=== PATIENT | female | born 1945 | race Caucasian/White ===

== ENCOUNTER 2020-07-26 14:44 | Observation (INO) ==
[2020-07-26 16:33] LABS: Hemoglobin 12.5 g/dL (11.5-15.4); Mean Corpuscular Volume 92.9 fL (83.0-100.0)
[2020-07-26 16:34] LABS: Basophils % 0.4 %; Eosinophils # 0.1 K/mcL (0.0-0.6); Eosinophils % 2.1 %; Hematocrit 37.8 % (35.3-44.9); Immature Granulocytes % 1.8 % (0-4); Immature Platelets 6.8 % (1.1-6.1); Lymphocytes # 0.5 K/mcL (0.6-4.6); Lymphocytes % 18.3 %; Mean Corpuscular HGB Conc 33.1 g/dL (31.6-35.5); Mean Corpuscular Hemoglobin 30.7 pg (28.0-33.3); Mean Platelet Volume 12.1 fL (9.4-12.4); Monocytes # 0.2 K/mcL (0.0-1.3); Monocytes % 6.7 %; Red Blood Count 4.07 M/mcL (3.82-4.97); Red Cell Distribution Width 12.5 % (11.5-14.5); Segmented Neutrophils % 70.7 %; White Blood Count 2.8 K/mcL (4.3-11.1)
[2020-07-26 16:40] LABS: INR 1.1; Prothrombin Time 12.5 Seconds (9.4-12.1)
[2020-07-26 16:42] LABS: Activated Partial Thrombo Time 26.2 Seconds (26.0-36.0)
[2020-07-26 16:45] LABS: Alanine Aminotransferase 27 Units/L (7-52); Albumin/Globulin Ratio 1.8 (1.1-2.2); Alkaline Phosphatase 78 Units/L (34-104); Aspartate Amino Transferase 24 Units/L (13-39); BUN/Creatinine Ratio 18 (6-26); Bilirubin,Direct 0.1 mg/dL (0.0-0.2); Bilirubin,Indirect 0.2 mg/dL (0.0-1.0); Bilirubin,Total 0.3 mg/dL (0.3-1.0); Blood Urea Nitrogen 16 mg/dL (8-23); Calcium 8.5 mg/dL (8.6-10.3); Carbon Dioxide 25 mEq/L (23-29); Chloride 106 mEq/L (98-107); Globulin 2.2 g/dL (2.4-3.5); Glucose 166 mg/dL (70-105); Osmolality,Calculated 293 (280-300); Potassium 3.9 mEq/L (3.5-5.1); Sodium 139 mEq/L (136-145); Total Protein 6.2 g/dL (6.4-8.9); Troponin I < 0.03 ng/mL (< 0.04); eGFR For African Americans > 60 (> 60); eGFR For Non-African Americans 60 (> 60)
[2020-07-26 16:48] LABS: Platelet Count 78 K/mcL (140-400)
[2020-07-26 17:55] LABS: Bacteria,Urine Few per hpf (None-Few); Bilirubin,Urine Negative (Negative); Blood,Urine Negative (Negative); Clarity,Urine Clear (Clear); Color,Urine Light-Yellow (Yellow); Glucose,Urine (UA) Normal (Normal); Ketones,Urine Negative (Negative); Leukocyte Esterase,Urine Small (Negative); Mucus,Urine Few per lpf (None-Few); Nitrite,Urine Negative (Negative); Protein,Urine Negative (Neg-Trace); RBC,Urine 0-3 per hpf (0-3); Specific Gravity,Urine 1.018 (1.010-1.025); Squamous Epithelial Cell,Urine Few per hpf (None-Few); Urobilinogen,Urine Normal (Normal); WBC,Urine 0-3 per hpf (0-3)
[2020-07-26 17:56] LABS: Adenovirus Not Detected (Not Detect); Bordetella Pertussis Not Detected (Not Detect); Chlamydophila pneumoniae Not Detected (Not Detect); Coronavirus 229E Not Detected (Not Detect); Coronavirus HKU1 Not Detected (Not Detect); Coronavirus NL63 Not Detected (Not Detect); Coronavirus OC43 Not Detected (Not Detect); Human Metapneumovirus Not Detected (Not Detect); Human Rhinovirus/Enterovirus DETECTED (Not Detect); Influenza A Subtype 2009 H1 Not Detected (Not Detect); Influenza B Not Detected (Not Detect); Mycoplasma pneumoniae Not Detected (Not Detect); Parainfluenza Virus 1 Not Detected (Not Detect); Parainfluenza Virus 2 Not Detected (Not Detect); Parainfluenza Virus 3 Not Detected (Not Detect); Parainfluenza Virus 4 Not Detected (Not Detect); Respiratory Syncytial Virus Not Detected (Not Detect); SARS-CoV-2 DETECTED (Not Detect)
[2020-07-26] MEDS ORDERED: Naloxone 0.4 MG/ML INJ IVP PRN (19:47)
[2020-07-26] MEDS ORDERED: Ondansetron ODT 4 MG TAB.RAPDIS SL PRN (19:47)
[2020-07-26] MEDS ORDERED: Acetaminophen 325 MG TABLET PO PRN (19:47)
[2020-07-26] MEDS ORDERED: Dextrose Gel 15 GM/37.5 ML TUBE PO PRN ×2 (19:58)
[2020-07-26] MEDS ORDERED: diazePAM 5 MG TABLET PO PRN (19:58)
[2020-07-26] MEDS ORDERED: *HR* OxyCODONE Immed Rel 5 MG TABLET PO PRN (19:58)
[2020-07-26] MEDS ORDERED: D5% in Water 1,000 ML IVC PRN (19:58)
[2020-07-26] MEDS ORDERED: *HR* Dextrose 50 % in Water (Vial) 50 ML VIAL IVP PRN (19:58)
[2020-07-26] MEDS ORDERED: Insulin LISPRO 300 UNITS/3 ML VIAL SUBQ SCH ×2 (20:00→21:00)
[2020-07-26] MEDS: Gabapentin 300 MG CAPSULE PO SCH (21:55)
[2020-07-27 02:28] LABS: Basophils % 0.7 %
[2020-07-27 02:30] LABS: Eosinophils # 0.1 K/mcL (0.0-0.6); Eosinophils % 1.6 %; Hematocrit 36.4 % (35.3-44.9); Hemoglobin 11.8 g/dL (11.5-15.4); Immature Granulocytes % 2.6 % (0-4); Immature Platelets 6.3 % (1.1-6.1); Lymphocytes # 0.7 K/mcL (0.6-4.6); Mean Corpuscular HGB Conc 32.4 g/dL (31.6-35.5); Mean Corpuscular Hemoglobin 30.3 pg (28.0-33.3); Mean Corpuscular Volume 93.6 fL (83.0-100.0); Mean Platelet Volume 11.4 fL (9.4-12.4); Monocytes # 0.3 K/mcL (0.0-1.3); Monocytes % 10.2 %; Neutrophils # 1.9 K/mcL (1.6-8.9); Platelet Count 75 K/mcL (140-400); Red Blood Count 3.89 M/mcL (3.82-4.97); Red Cell Distribution Width 12.5 % (11.5-14.5); Segmented Neutrophils % 61.9 %; White Blood Count 3.1 K/mcL (4.3-11.1)
[2020-07-27 02:46] LABS: BUN/Creatinine Ratio 20 (6-26); Blood Urea Nitrogen 19 mg/dL (8-23); C-Reactive Protein < 5 mg/L (Less than 10); Calcium 8.5 mg/dL (8.6-10.3); Carbon Dioxide 27 mEq/L (23-29); Chloride 106 mEq/L (98-107); Glucose 92 mg/dL (70-105); Lactate Dehydrogenase 117 Units/L (140-271); Magnesium 1.5 mg/dL (1.6-2.6); Osmolality,Calculated 290 (280-300); Phosphorous 3.3 mg/dL (2.7-4.5); Sodium 139 mEq/L (136-145); eGFR For African Americans > 60 (> 60); eGFR For Non-African Americans 58 (> 60)
[2020-07-27] MEDS: Gabapentin 300 MG CAPSULE PO SCH (08:41)
[2020-07-27 09:49] VITALS: BP 115/60
== END 2020-07-27 13:21 | disposition home or self-care (01) ==
LOC: EMEROOARM 14:44 → 2NENU 14:44 → SUATTDRO 19:48 → 2NENU 21:26
PROVIDERS: ADMIT Internal Medicine; ATTEND Student in an Organized Health Care Education/Training Program

== ENCOUNTER 2021-06-18 12:54 | Inpatient (IN) ==
[2021-06-18] MEDS ORDERED: *HR* HYDROmorphone (PF) 1 MG/ML SYRINGE IVP ONE (14:24)
[2021-06-18 14:50] LABS: Basophils % 0.4 %; Eosinophils % 1.1 %; Platelet Count 104 K/mcL (140-400); Red Cell Distribution Width 12.6 % (11.5-14.5)
[2021-06-18 14:52] LABS: Eosinophils # 0.1 K/mcL (0.0-0.6); Hematocrit 40.4 % (35.3-44.9); Hemoglobin 12.8 g/dL (11.5-15.4); Immature Granulocytes % 1.3 % (0-4); Immature Platelets 5.1 % (1.1-6.1); Lymphocytes # 1.4 K/mcL (0.6-4.6); Lymphocytes % 17.4 %; Mean Corpuscular HGB Conc 31.7 g/dL (31.6-35.5); Mean Corpuscular Hemoglobin 31.4 pg (28.0-33.3); Mean Corpuscular Volume 99.3 fL (83.0-100.0); Mean Platelet Volume 11.7 fL (9.4-12.4); Monocytes # 0.5 K/mcL (0.0-1.3); Monocytes % 5.7 %; Red Blood Count 4.07 M/mcL (3.82-4.97); Segmented Neutrophils % 74.1 %; White Blood Count 7.9 K/mcL (4.3-11.1)
[2021-06-18 14:53] LABS: Neutrophils # 5.9 K/mcL (1.6-8.9)
[2021-06-18 15:11] LABS: Calcium 8.9 mg/dL (8.6-10.3); Potassium 3.8 mEq/L (3.5-5.1)
[2021-06-18] MEDS ORDERED: Ondansetron 4 MG/2 ML VIAL IVP PRN (15:13)
[2021-06-18] MEDS ORDERED: Melatonin 3 MG TABLET PO PRN (15:13)
[2021-06-18] MEDS ORDERED: Naloxone 0.4 MG/ML INJ IVP PRN (15:13)
[2021-06-18] MEDS ORDERED: diazePAM 5 MG TABLET PO PRN (15:14)
[2021-06-18] MEDS ORDERED: (Diclofenac Sodium [Voltaren] 100 GM Gel..Gram.) TP PRN (15:14)
[2021-06-18] MEDS ORDERED: *HR* OxyCODONE Immed Rel 5 MG TABLET PO PRN (15:39)
[2021-06-18] MEDS ORDERED: Dextrose Gel 15 GM/37.5 ML TUBE PO PRN ×2 (15:42)
[2021-06-18] MEDS ORDERED: *HR* Dextrose 50 % in Water (Syg) 50 ML SYRINGE IVP PRN (15:42)
[2021-06-18] MEDS ORDERED: D5% in Water 1,000 ML IVC PRN (15:42)
[2021-06-18] MEDS ORDERED: 0.9 % Sodium Chloride 1,000 ML IVC SCH (15:45)
[2021-06-18] MEDS: Insulin LISPRO 300 UNITS/3 ML VIAL SUBQ SCH (18:02)
[2021-06-18] MEDS: Topiramate 25 MG TABLET PO SCH (20:22)
[2021-06-18] MEDS: Gabapentin 400 MG CAPSULE PO SCH (20:27)
[2021-06-18] MEDS: *HR* OxyCODONE Immed Rel 5 MG TABLET PO PRN (23:16)
[2021-06-19] MEDS: Acetaminophen 325 MG TABLET PO PRN (04:44)
[2021-06-19 05:09] LABS: Basophils % 0.5 %; Mean Platelet Volume 11.6 fL (9.4-12.4)
[2021-06-19 05:10] LABS: Bilirubin,Urine Negative (Negative); Blood,Urine Negative (Negative); Clarity,Urine Clear (Clear); Color,Urine Colorless (Yellow); Glucose,Urine (UA) Normal (Normal); Ketones,Urine Negative (Negative); Leukocyte Esterase,Urine Negative (Negative); Nitrite,Urine Negative (Negative); PH,Urine 6.5 pH Units (5.0-8.0); Protein,Urine Negative (Neg-Trace); Specific Gravity,Urine 1.008 (1.010-1.025); Urobilinogen,Urine Normal (Normal)
[2021-06-19 05:11] LABS: Eosinophils # 0.1 K/mcL (0.0-0.6); Eosinophils % 2.2 %; Hemoglobin 12.2 g/dL (11.5-15.4); Immature Granulocytes % 1.9 % (0-4); Immature Platelets 4.6 % (1.1-6.1); Lymphocytes # 1.4 K/mcL (0.6-4.6); Lymphocytes % 21.9 %; Mean Corpuscular HGB Conc 32.1 g/dL (31.6-35.5); Mean Corpuscular Hemoglobin 31.7 pg (28.0-33.3); Mean Corpuscular Volume 98.7 fL (83.0-100.0); Monocytes # 0.6 K/mcL (0.0-1.3); Monocytes % 8.6 %; Red Blood Count 3.85 M/mcL (3.82-4.97); Red Cell Distribution Width 12.7 % (11.5-14.5); Segmented Neutrophils % 64.9 %; White Blood Count 6.4 K/mcL (4.3-11.1)
[2021-06-19 05:12] LABS: Neutrophils # 4.2 K/mcL (1.6-8.9); Platelet Count 98 K/mcL (140-400)
[2021-06-19 05:32] LABS: Calcium 8.9 mg/dL (8.6-10.3); Magnesium 1.5 mg/dL (1.6-2.6)
[2021-06-19] MEDS: *HR* OxyCODONE Immed Rel 5 MG TABLET PO PRN ×2 (05:42→19:25)
[2021-06-19] MEDS: Insulin LISPRO 300 UNITS/3 ML VIAL SUBQ SCH ×3 (08:51→16:29)
[2021-06-19] MEDS: Loratadine 10 MG TABLET PO SCH (09:06)
[2021-06-19] MEDS: lisinopriL 10 MG TABLET PO SCH (09:06)
[2021-06-19] MEDS: Gabapentin 300 MG CAPSULE PO SCH ×2 (09:06→14:41)
[2021-06-19] MEDS: Cyanocobalamin (B-12) 1,000 MCG TABLET PO SCH (09:06)
[2021-06-19] MEDS ORDERED: Ringers Solution, Lactated 1,000 ML IVC SCH (11:45)
[2021-06-19] MEDS: Gabapentin 400 MG CAPSULE PO SCH (19:25)
[2021-06-19] MEDS: Topiramate 25 MG TABLET PO SCH (19:25)
[2021-06-20 04:45] LABS: Basophils % 0.5 %; Eosinophils # 0.1 K/mcL (0.0-0.6); Eosinophils % 2.5 %; Hematocrit 34.9 % (35.3-44.9); Immature Granulocytes % 1.8 % (0-4); Lymphocytes # 1.3 K/mcL (0.6-4.6); Lymphocytes % 22.6 %; Mean Corpuscular HGB Conc 31.5 g/dL (31.6-35.5); Mean Corpuscular Hemoglobin 32.2 pg (28.0-33.3); Mean Platelet Volume 11.5 fL (9.4-12.4); Monocytes # 0.5 K/mcL (0.0-1.3); Red Blood Count 3.42 M/mcL (3.82-4.97); Red Cell Distribution Width 12.6 % (11.5-14.5); Segmented Neutrophils % 63.6 %; White Blood Count 5.6 K/mcL (4.3-11.1)
[2021-06-20 04:47] LABS: Neutrophils # 3.6 K/mcL (1.6-8.9); Platelet Count 92 K/mcL (140-400)
[2021-06-20 05:03] LABS: Calcium 8.9 mg/dL (8.6-10.3); Potassium 4.3 mEq/L (3.5-5.1)
[2021-06-20] MEDS: Insulin LISPRO 300 UNITS/3 ML VIAL SUBQ SCH ×3 (08:33→17:14)
[2021-06-20] MEDS: Gabapentin 300 MG CAPSULE PO SCH ×2 (08:35→14:29)
[2021-06-20] MEDS: lisinopriL 10 MG TABLET PO SCH (08:35)
[2021-06-20] MEDS: *HR* OxyCODONE Immed Rel 5 MG TABLET PO PRN (08:35)
[2021-06-20] MEDS: Loratadine 10 MG TABLET PO SCH (08:35)
[2021-06-20] MEDS: Cyanocobalamin (B-12) 1,000 MCG TABLET PO SCH (08:35)
[2021-06-20] MEDS ORDERED: Milk and Molasses Enema 200 ML RC ONE (14:53)
[2021-06-20] MEDS: Gabapentin 400 MG CAPSULE PO SCH (20:04)
[2021-06-20] MEDS: Topiramate 25 MG TABLET PO SCH (20:04)
[2021-06-20] MEDS: Acetaminophen 325 MG TABLET PO PRN (20:04)
[2021-06-21 05:01] LABS: Mean Corpuscular Volume 97.5 fL (83.0-100.0); Monocytes % 7.8 %; Red Cell Distribution Width 12.4 % (11.5-14.5); Segmented Neutrophils % 64.8 %
[2021-06-21 05:04] LABS: Basophils % 0.3 %; Eosinophils # 0.2 K/mcL (0.0-0.6); Eosinophils % 3.2 %; Hematocrit 35.7 % (35.3-44.9); Hemoglobin 11.2 g/dL (11.5-15.4); Immature Granulocytes % 1.4 % (0-4); Immature Platelets 3.7 % (1.1-6.1); Lymphocytes # 1.4 K/mcL (0.6-4.6); Lymphocytes % 22.5 %; Mean Corpuscular HGB Conc 31.4 g/dL (31.6-35.5); Mean Corpuscular Hemoglobin 30.6 pg (28.0-33.3); Mean Platelet Volume 11.6 fL (9.4-12.4); Monocytes # 0.5 K/mcL (0.0-1.3); Neutrophils # 4.1 K/mcL (1.6-8.9); Red Blood Count 3.66 M/mcL (3.82-4.97); White Blood Count 6.3 K/mcL (4.3-11.1)
[2021-06-21 05:05] LABS: Platelet Count 97 K/mcL (140-400)
[2021-06-21 05:23] LABS: Calcium 9.2 mg/dL (8.6-10.3); Potassium 4.6 mEq/L (3.5-5.1)
[2021-06-21] MEDS: Insulin LISPRO 300 UNITS/3 ML VIAL SUBQ SCH ×3 (08:26→18:44)
[2021-06-21] MEDS ORDERED: Ergocalciferol (VIT D2) 50,000 UNIT (1.25MG) CAP PO SCH (09:00)
[2021-06-21] MEDS: Loratadine 10 MG TABLET PO SCH (09:48)
[2021-06-21] MEDS: Cyanocobalamin (B-12) 1,000 MCG TABLET PO SCH (09:48)
[2021-06-21] MEDS: Gabapentin 300 MG CAPSULE PO SCH ×2 (09:48→18:43)
[2021-06-21] MEDS: lisinopriL 10 MG TABLET PO SCH (10:13)
[2021-06-21] MEDS ORDERED: *HR* Propofol 200 MG/20 ML VIAL IVP ONE (11:10)
[2021-06-21] MEDS ORDERED: Famotidine 20 MG TABLET PO ONE (12:35)
[2021-06-21] MEDS ORDERED: *HR* FentaNYL (PF) 100 MCG/2 ML VIAL ONE (12:36)
[2021-06-21] MEDS ORDERED: Acetaminophen IV 1,000 MG/100 ML BAG IVPB ONE ×2 (12:43→13:00)
[2021-06-21] MEDS ORDERED: Ondansetron 4 MG/2 ML VIAL IVP PRN (12:54)
[2021-06-21] MEDS ORDERED: *HR* HYDROmorphone PF 0.5 MG/0.5 ML SYRINGE IVP PRN (12:54)
[2021-06-21] MEDS ORDERED: *HR* OxyCODONE Immed Rel 5 MG TABLET PO PRN (12:54)
[2021-06-21] MEDS ORDERED: Ondansetron 4 MG/2 ML VIAL ONE (13:35)
[2021-06-21] MEDS ORDERED: Lidocaine -MPF 2% 5 ML VIAL ONE (13:35)
[2021-06-21] MEDS ORDERED: *HR* Rocuronium Bromide 50 MG/5 ML VIAL ONE (13:35)
[2021-06-21] MEDS ORDERED: ceFAZolin 2,000 MG in 0.9 % Sodium Chloride 100 ML IVPB ONE (13:45)
[2021-06-21] MEDS ORDERED: Isovue-M 200 10 ML VIAL ONE (13:48)
[2021-06-21] MEDS ORDERED: Isovue-300 50ML VIAL ONE (13:49)
[2021-06-21] MEDS ORDERED: Bupivacaine/EPI 1:200k 0.25% 50 ML VIAL ONE (13:50)
[2021-06-21] MEDS ORDERED: Sugammadex Sodium 200 MG/2 ML VIAL IV ONE (14:10)
[2021-06-21] MEDS: ceFAZolin 2,000 MG in 0.9 % Sodium Chloride 100 ML IVPB SCH (18:43)
[2021-06-21] MEDS: Topiramate 25 MG TABLET PO SCH (20:51)
[2021-06-21] MEDS: Gabapentin 400 MG CAPSULE PO SCH (20:51)
[2021-06-21] MEDS: Acetaminophen 325 MG TABLET PO PRN (20:51)
[2021-06-22] MEDS: ceFAZolin 2,000 MG in 0.9 % Sodium Chloride 100 ML IVPB SCH (00:03)
[2021-06-22 08:11] LABS: Basophils % 0.3 %; Eosinophils # 0.1 K/mcL (0.0-0.6); Eosinophils % 1.4 %; Hematocrit 33.9 % (35.3-44.9); Hemoglobin 11.2 g/dL (11.5-15.4); Immature Granulocytes % 1.4 % (0-4); Lymphocytes # 1.3 K/mcL (0.6-4.6); Lymphocytes % 19.2 %; Mean Corpuscular Hemoglobin 31.9 pg (28.0-33.3); Mean Corpuscular Volume 96.6 fL (83.0-100.0); Mean Platelet Volume 11.3 fL (9.4-12.4); Monocytes # 0.4 K/mcL (0.0-1.3); Platelet Count 118 K/mcL (140-400); Red Blood Count 3.51 M/mcL (3.82-4.97); Red Cell Distribution Width 12.2 % (11.5-14.5); Segmented Neutrophils % 71.7 %
[2021-06-22] MEDS: Loratadine 10 MG TABLET PO SCH (08:19)
[2021-06-22] MEDS: Gabapentin 300 MG CAPSULE PO SCH ×2 (08:19→14:15)
[2021-06-22] MEDS: lisinopriL 10 MG TABLET PO SCH (08:19)
[2021-06-22] MEDS: Cyanocobalamin (B-12) 1,000 MCG TABLET PO SCH (08:19)
[2021-06-22] MEDS: Insulin LISPRO 300 UNITS/3 ML VIAL SUBQ SCH ×3 (08:23→17:57)
[2021-06-22 08:24] LABS: Calcium 8.8 mg/dL (8.6-10.3); Potassium 4.4 mEq/L (3.5-5.1)
[2021-06-22] MEDS: *HR* OxyCODONE Immed Rel 5 MG TABLET PO PRN ×2 (14:15→20:55)
[2021-06-22] MEDS: Gabapentin 400 MG CAPSULE PO SCH (20:56)
[2021-06-22] MEDS: Topiramate 25 MG TABLET PO SCH (20:56)
[2021-06-23] MEDS: tiZANidine 4 MG TABLET PO PRN ×2 (06:24→23:11)
[2021-06-23] MEDS: Insulin LISPRO 300 UNITS/3 ML VIAL SUBQ SCH ×3 (08:17→18:02)
[2021-06-23] MEDS: Loratadine 10 MG TABLET PO SCH (08:18)
[2021-06-23] MEDS: Cyanocobalamin (B-12) 1,000 MCG TABLET PO SCH (08:18)
[2021-06-23] MEDS: Gabapentin 300 MG CAPSULE PO SCH ×2 (08:18→14:35)
[2021-06-23] MEDS: lisinopriL 10 MG TABLET PO SCH (08:22)
[2021-06-23] MEDS: *HR* OxyCODONE Immed Rel 5 MG TABLET PO PRN (23:10)
[2021-06-23] MEDS: Gabapentin 400 MG CAPSULE PO SCH (23:11)
[2021-06-24] MEDS: Topiramate 25 MG TABLET PO SCH (01:15)
[2021-06-24 06:31] VITALS: BP 105/67; PULSE 72; TEMP 97.6; O2SAT 94
[2021-06-24] MEDS: Insulin LISPRO 300 UNITS/3 ML VIAL SUBQ SCH (08:48)
[2021-06-24] MEDS: Gabapentin 300 MG CAPSULE PO SCH (08:56)
[2021-06-24] MEDS: lisinopriL 10 MG TABLET PO SCH (08:56)
[2021-06-24] MEDS: Cyanocobalamin (B-12) 1,000 MCG TABLET PO SCH (08:56)
[2021-06-24] MEDS: Loratadine 10 MG TABLET PO SCH (08:56)
[2021-06-24] MEDS: *HR* OxyCODONE Immed Rel 5 MG TABLET PO PRN (12:04)
== END 2021-06-24 12:40 | disposition home health service (06) | DRG 517 ==
LOC: EMEROOARM 12:54 → 4WAOSI 12:54 → SUATTDRO 15:00 → 4WAOSI 15:36
PROVIDERS: ADMIT Internal Medicine; ATTEND Internal Medicine